=== PATIENT | male | born 1965 | race Caucasian/White ===

== ENCOUNTER 2018-01-10 20:28 | Emergency (ER) | payer BC ==
[~2018-01-10] VITALS: Ht 160 cm; Wt 131.5 kg
[2018-01-10 21:24] VITALS: BP 151/108
[2018-01-10] MEDS ORDERED: BOOSTRIX TDAP IM ONE ×2 (21:37→22:00)
[2018-01-10] MEDS ORDERED: TRIPLE ANTIBIOTIC OINTMENT TP ONE (21:37)
--- NOTE | 2018-01-10 21:54 | ER.PDOC ---
General Chief Complaint: General Complaint Stated Complaint: EXTREMITIES Time seen by MD: 21:50 Source: patient Exam Limitations: no limitations History of Present Illness Initial Comments Laceration left leg Onset: just prior to arrival Where: other (football field) Context: laceration Severity: moderate Past Medical History Medical History: cardiac problems, hypertension Social History Smoking: non-smoker Alcohol Use: occassionally Drug Use: none Review of Systems Constitutional: no symptoms reported EENTM: no symptoms reported Respiratory: no symptoms reported Cardiovascular: no symptoms reported Gastrointestinal: no symptoms reported Skin: see HPI All Other Systems: Reviewed and Negative Physical Exam General Appearance: Alert, No Apparent Distress Foot: nml inspection, non-tender, nml color/temp, skin intact Ankle: nml inspection, non-tender, nml ROM, no joint swelling, skin intact Knee: nml inspection, non-tender, nml ROM, no joint swelling Thigh/Hip: nml inspection 1 - Lac Gait: normal Neuro/Vasc/Tendon: sensation nml, motor nml, no vascular compromise, tendon function nml Head/ENT: nml inspection, pharynx nml Neck/Back: nml inspection, non-tender Abdomen: non-tender, pelvis stable ED LACERATION WOUND REPAIR # of Wounds/Lacerations Presen: 1 Wound Location & Length (Requi: left leg Wound Length (cm): 3 Anesthesia type: local (Bupivacaine) Volume Anesthetic (ccs): 10 Wound's Depth, Shape: irregular Irrigated w/ Saline (ccs): 30 Wound Repaired With: sutures Suture Size/Type: 4:0, ethilon Suture Style: interupted Number of Sutures: 6 Sterile Dressing Applied?: Yes Departure Time of Disposition: 21:53 Disposition: 01 HOME, SELF-CARE Impression: Primary Impression: Laceration of leg Qualified Codes: S81.812A - Laceration without foreign body, left lower leg, initial encounter Condition: Stable Referrals: PCP,UNKNOWN (PCP) PRIMARY CARE PROVIDER Additional Instructions: Keflex Apply Neosporin daily Remove sutures in 8 days at your PCP or ED Duration or Time Spent with Pa: 60 mins MIRIAN BILLINGS MD Jan 10, 2018 21:54
--- NOTE | 2018-01-10 22:00 | NUR ---
Stiches 6 stiches placed in left sotelo
[2018-01-10 22:01] VITALS: BP 151/108
== END 2018-01-10 21:58 | disposition home or self-care (01) ==
LOC: ER 21:06
DX: S81.812A Laceration without foreign body, left lower leg, initial encounter (principal); I10 Essential (primary) hypertension; W21.31XA Struck by shoe cleats, initial encounter; Y93.81 Activity, refereeing a sports activity; Y92.39 Other specified sports and athletic area as the place of occurrence of the external cause; Y99.8 Other external cause status
CPT/HCPCS: 12002; 90471; 90715; 99283